=== PATIENT | female | born 1960 ===

== ENCOUNTER 2021-03-23 12:35 | Inpatient (IN) | payer BC ==
[~2021-03-23] VITALS: Ht 165.2 cm; Wt 51.8 kg
[2021-03-23] VITALS (8 sets, daily range): BP systolic 140–173; BP diastolic 71–98; PULSE 60–73; TEMP 97.8–98.1
[2021-03-23] MEDS ORDERED: ASPIRIN 81M81 MG/TA2 PO (14:17)
[2021-03-23] MEDS ORDERED: LEXAPRO 10MG10 MG PO (14:17)
--- NOTE | 2021-03-23 14:34 | NUR ---
Pt was finally able to void. Specimen sent to lab. Pt having increase in pain again and stating that it is burning when she urinates. Will wait for lab results
--- NOTE | 2021-03-23 14:36 | NUR ---
Pt has arrived via EMS from [place]. She is alert and oriented with pain complaints 5/10. She does state that it is tolerable and just increases with movement. Pt has been NPO since about 0700. Admission done, Dr Gentile in with pt
--- NOTE | 2021-03-23 15:26 | NUR ---
Pt admitted, Gallito has been in as well as anesthesia. Pt now off the floor for surgery
--- NOTE | 2021-03-23 18:15 | NUR ---
Pt has been up from surgery since about 1714. She is doing well with some pain with movement. BP is elevated. Called and notified RADHA Coe. No new orders, will continue to monitor and notify if it stays elevated. Pt has ordered some dinner. Her is present in the room. Gauze to right hip is CDI with ice. Teds and SCDs on bilaterally.
--- NOTE | 2021-03-23 20:20 | NUR ---
Pt. sitting up in bed. Pt. is a&OX3, assessment complete. INT to rt. ac patent. IV to rt. hand patent, IV fluids infusing per orders. Pt. reports pain to rt. hip at a 4 on pain scale, gave pain meds per orders. Dressing to rt. hip CDI. Pt. denies further needs, call light within reach.
[2021-03-24 00:02] VITALS: BP 110/66; PULSE 73; TEMP 97.5
[2021-03-24 04:18] VITALS: BP 120/65; PULSE 64; TEMP 97.9
[2021-03-24 06:00] LABS: BASO % 0.1 % (0.0-2.0); EOS % 0.1 % (0-4.0); GRAN # 8.1 (1.4-6.5); GRAN % 87.9 % (42.2-75.2); HEMATOCRIT 37.9 % (37.0-47.0); HEMOGLOBIN 13.1 g/dl (12.5-16.0); LYMPH # 0.7 (1.2-3.4); LYMPH % 7.8 % (20.0-51.0); MEAN CELL VOLUME 91 fl (80.0-100.0); MEAN CORPUSCULAR HEMOGLOBIN 31 pg (27.0-31.0); MEAN CORPUSCULAR HGB CONC 35 g/dl (33.0-37.0); MEAN PLATELET VOLUME 10.2 fl (7.4-10.4); MONO # 0.3 (0.1-0.6); MONO % 3.7 % (1.7-9.3); PLATELET COUNT 193 K/mm3 (130-400); RED BLOOD COUNT 4.19 M/mm3 (4.10-5.30); REDCELL DISTRIBUTION WIDTH-CV 11.9 % (11.5-14.5)
[2021-03-24 06:15] LABS: CALCIUM 8.8 mg/dL (8.4-10.2); CREATININE, serum 0.67 (0.52-1.25); PHOSPHOROUS 3.1 mg/dL (2.5-4.5); POTASSIUM 4.1 mmol/L (3.4-5.0)
[2021-03-24 07:53] VITALS: BP 116/62; PULSE 80; TEMP 98.1
--- NOTE | 2021-03-24 09:14 | NUR ---
Initial visit; Patient thanked Search Marketing Specialist for looking in on her and offering God's blessings.
[2021-03-24] MEDS ORDERED: ASPI325T6 PO (09:34)
[2021-03-24] MEDS ORDERED: NORCO 325 MG-51 TAB PO (09:34)
--- NOTE | 2021-03-24 10:34 | NUR ---
NICOLÁS met with the patient to discuss discharge plan. The patient lives in [place] with her , Ryan (ph#[phone]). She reports independence with ADLs and has a walker and crutches. The patient's PCP is Dr. Abdullahi Wells and she receives her medications from [facility] [facility]. She reports no difficulties obtaining her meds. The patient does not have a DPOA-HC in EMR, but she states that she does have one completed and that it designates her . The patient had a right hip fracture and had surgery yesterday. PT/OT worked with the patient and recommend outpatient PT. The patient reports that she plans on returning home with her and would like pursue with outpatient PT. She states that she has gone to Dr. Cordova at [facility] in [place] in the past and would like to get set up there. NICOLÁS contacted and secured the patient an outpatient PT appointment on 03/31 at 1400 at [facility]. NICOLÁS notified the school community relations coordinator of the appointment. The patient is to discharge back home with her today, 03/24, with outpatient PT at [facility]. NICOLÁS [facility]. No additional needs at this time.
--- NOTE | 2021-03-24 11:31 | NUR ---
Patient alert and oriented, answers questions appropriately. See assessment. RLE hip dressing CDI, gauze and tegaderm. Pulses palpable to BLE, no numbness or tingling. Minimal pain to RLE, mostly with sit to standing. FWB. Post op exercises reviewed with patient. No c/o at this time.
--- NOTE | 2021-03-24 11:59 | NUR ---
Discharge instructions reviewed with patient, verbalized understanding. Discharged via wheelchair to auto/home with spouse at 1155.
== END 2021-03-24 11:55 | disposition home or self-care (01) | DRG 482 ==
LOC: SURG 13:30
PROVIDERS: Orthopaedic Surgery Sports Medicine; ADMIT Emergency Medicine
PROC: 0QH634Z Insertion of Internal Fixation Device into Right Upper Femur, Percutaneous Approach (ICD-10-PCS; principal; 2021-03-23 15:30)
DX: S72.001A Fracture of unspecified part of neck of right femur, initial encounter for closed fracture (principal); W18.30XA Fall on same level, unspecified, initial encounter; F41.9 Anxiety disorder, unspecified
CPT/HCPCS: 99222-AI; 99238; A9284; C1713; J0690; J1100; J2250; J2405; J2704; J3010; J7120